=== PATIENT | female | born 1930 | race Caucasian/White ===

== ENCOUNTER 2017-07-06 18:04 | Emergency (ER) | payer OTHER ==
[~2017-07-06] VITALS: Ht 165.1 cm; Wt 63.5 kg
[~2017-07-06 18:04] MED LIST: ALEN70TA2 PO; AML5T PO; CAR25T PO; GABA-494 PO; LATA0.00 OP; OMEP20CA74 PO
[2017-07-06 20:07] VITALS: BP 145/88
== END 2017-07-06 20:39 | disposition home or self-care (01) ==
LOC: ER 18:04 → EDBD 18:04 → ER 20:39
DX: S70.01XA Contusion of right hip, initial encounter (principal); J45.909 Unspecified asthma, uncomplicated; I10 Essential (primary) hypertension; Z90.49 Acquired absence of other specified parts of digestive tract; Z88.6 Allergy status to analgesic agent; Z90.710 Acquired absence of both cervix and uterus; W20.8XXA Other cause of strike by thrown, projected or falling object, initial encounter; Y93.89 Activity, other specified; Y99.8 Other external cause status; Y92.098 Other place in other non-institutional residence as the place of occurrence of the external cause